=== PATIENT | female | born 1945 | race Caucasian/White ===

== ENCOUNTER → 2018-04-08 | Outpatient (CLI) | payer MEDICARE, OTHER ==
--- NOTE | 2018-04-08 13:06 | RAD ---
DATE: 04/08/2018 EXAM: MAMMO AYDEN SCREENING BILATERAL HISTORY: Routine screening COMPARISON: 03/27/2016 This study was interpreted with the benefit of Computerized Aided Detection (CAD). Breast Density: SCATTERED The breast parenchyma shows scattered fibroglandular densities. Breast parenchyma level B. FINDINGS: 2-D and 3-D tomosynthesis imaging was performed in CC and MLO projections. No new or enlarging breast densities are seen. Benign type calcifications are present. No suspicious microcalcifications have developed. IMPRESSION: Stable mammograms without evidence of malignancy. BI-RADS CATEGORY: 2 BENIGN FINDING(S) RECOMMENDED FOLLOW-UP: 12M 12 MONTH FOLLOW-UP PQRS compliance statement: Patient information was entered into a reminder system with a target due date for the next mammogram. Mammography is a sensitive method for finding small breast cancers, but it does not detect them all and is not a substitute for careful clinical examination. A negative mammogram does not negate a clinically suspicious finding and should not result in delay in biopsying a clinically suspicious abnormality. "Our facility is accredited by the [employer] Mammography [employer]."
== END | disposition home or self-care (01) ==
LOC: MAMMO 11:22
PROVIDERS: ATTEND Family Medicine
DX: Z12.31 Encounter for screening mammogram for malignant neoplasm of breast (principal)
CPT/HCPCS: 77063; 77067

== ENCOUNTER → 2019-07-14 | Outpatient (CLI) | payer MEDICARE, OTHER ==
--- NOTE | 2019-07-15 16:54 | RAD ---
DATE: 07/14/2019 EXAM: MAMMO AYDEN SCREENING BILATERAL HISTORY: Routine screening COMPARISON: 02/11/2014, 03/03/2015, 03/27/2016, 04/08/2018 This study was interpreted with the benefit of Computerized Aided Detection (CAD). Breast Density: SCATTERED The breast parenchyma shows scattered fibroglandular densities. Breast parenchyma level B. FINDINGS: No suspicious calcification, mass, or distortion. IMPRESSION: Stable BI-RADS CATEGORY: 1 NEGATIVE RECOMMENDED FOLLOW-UP: 12M 12 MONTH FOLLOW-UP PQRS compliance statement: Patient information was entered into a reminder system with a target due date for the next mammogram. Mammography is a sensitive method for finding small breast cancers, but it does not detect them all and is not a substitute for careful clinical examination. A negative mammogram does not negate a clinically suspicious finding and should not result in delay in biopsying a clinically suspicious abnormality. "Our facility is accredited by the [employer] Mammography [employer]."
== END | disposition home or self-care (01) ==
LOC: MAMMO 09:31
PROVIDERS: ATTEND Family Medicine
DX: Z12.31 Encounter for screening mammogram for malignant neoplasm of breast (principal)
CPT/HCPCS: 77063; 77067

== ENCOUNTER → 2020-08-02 | Outpatient (CLI) | payer MEDICARE, OTHER ==
--- NOTE | 2020-08-02 16:18 | RAD ---
EXAMINATION: MG BILAT SCREEN+AYDEN CLINICAL HISTORY: Routine screening TECHNIQUE: Digital craniocaudal and mediolateral oblique views of the bilateral breasts obtained with 3-D tomosynthesis. COMPARISON: 07/14/2019, 04/08/2018, 03/27/2016 BREAST COMPOSITION: There are scattered areas of fibroglandular density. FINDINGS: 2.5 cm developing asymmetry right breast middle third at 6:00 position approximately 7.7 cm from the nipple. No evidence of suspicious mass in the left breast. No evidence of suspicious calcifications o r areas of architectural distortion bilaterally. IMPRESSION: Developing asymmetry in the right breast at 6:00 position. BI-RADS ASSESSMENT: Category 0: Incomplete - Need Additional Imaging Evaluation and/or Prior Mammograms for Comparison RECOMMENDATION: Recommend further evaluation with spot compression views of the right breast and possible targeted ri ght breast ultrasound if indicated. PQRS compliance statement - Patient information was entered into a reminder system with a target due date for the next mammogram. "Our facility is accredited by the [employer] Mammography Program." Electronically signed by: Roby Dupree DO (08/02/2020 4:16 PM) [id number]
== END ==
LOC: MAMMO 11:09
PROVIDERS: ATTEND Family Medicine
DX: Z12.31 Encounter for screening mammogram for malignant neoplasm of breast (principal)
CPT/HCPCS: 77063; 77067

== ENCOUNTER → 2020-08-12 | Outpatient (CLI) | payer MEDICARE, OTHER ==
--- NOTE | 2020-08-12 10:46 | RAD ---
Examination: 1. Right digital diagnostic mammogram. 2. Limited right breast ultrasound. INDICATION: Right breast recall for new mass on screening mammogram. COMPARISON: mammograms of 07/14/19 and 08/02/20 TECHNIQUE: Full field right ML view along with spot compression CC and MLO views of the right breast were obtained with 2-D technique. Targeted ultrasound of the inferior right breast was subsequently p erformed. FINDINGS: The breast parenchyma is almost entirely fatty replaced. Additional mammographic views of the right breast confirm the presence of an isodense irregular mass at the 6:00 position at mid depth, approximately 5 cm from the nipple. Margins are indistinct and the re is punctate internal calcification. Targeted ultrasound of the right breast confirms the presence of an irregular hypoechoic mass at the 6:00 position 5 cm from the nipple measuring 2.2 cm in maximum length in the radial orientation on ul trasound. This corresponds with the mammographic finding recalled from screening. Sonographic survey of the right axilla reveals no adenopathy. IMPRESSION: Irregular 2.2 cm hypoechoic mass in the inferior right breast. BI-RADS Category 5 Findings highly suggestive of malignancy Recommend ultrasound-guided right breast core needle biopsy. Findings and recommendations communicated to the patient prior to her discharge from the imaging suit e and telephoned to the ordering provider (Dr. Mackenzie)'s office where temporary administrative assistant Lali chong took the telephone report on his behalf at 10:11 AM on August 12, 2020. Electronically signed by: Manjinder Lindsey MD (08/12/2020 10:44 AM) [id number]
== END ==
LOC: MAMMO 08:59
PROVIDERS: ATTEND Family Medicine
DX: R92.2 Inconclusive mammogram (principal); N63.13 Unspecified lump in the right breast, lower outer quadrant
CPT/HCPCS: 76641; 77065

== ENCOUNTER → 2020-08-30 | Outpatient (CLI) | payer MEDICARE, OTHER ==
--- NOTE | 2020-08-30 14:08 | RAD ---
INDICATION: Osteoporosis screening. Postmenopausal follow-up COMPARISON: 03/27/2016. TECHNIQUE: Bone densitometry was performed through the lumbar spine and proximal femur. IMPRESSION: Lumbar Spine: BMD: 1.33 T-Score: 1.2 Range: Normal. Similar to prior. Proximal Femur: BMD: 0.88 T-Score: -0.6 Range: Normal, decreased by 12 percent from prior World Health Organization Criteria for Bone Density: T-Score: > -1.0: Normal Range < -1.0 to -2.5: Osteopenic Range < -2.5: Osteoporotic Range Electronically signed by: Jose De Jesus Muñoz MD (08/30/2020 2:06 PM) [id number]
== END ==
LOC: DXRAD 12:38
PROVIDERS: ATTEND Family Medicine
DX: Z13.820 Encounter for screening for osteoporosis (principal); Z78.0 Asymptomatic menopausal state
CPT/HCPCS: 77080

== ENCOUNTER 2021-02-27 17:33 | Emergency (ER) | payer MEDICARE, OTHER ==
[~2021-02-27] VITALS: Ht 165.1 cm; Wt 91.0 kg
--- NOTE | 2021-02-27 18:10 | EKG ---
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
--- NOTE | 2021-02-27 18:31 | PHYS DOC ---
Past History Additional Past Medical Histor: breast cancer Past Surgical History: Hysterectomy, Knee Replacement Alcohol Use: None General Adult EDM: Chief Complaint: CHEST PAIN HPI: HPI: 75-year-old female presents with chest pain. The patient has been having intermittent tightness of the upper abdomen for the last couple of days. She presents today because the pain got up to a 10 out of 10. It is currently a 5 out of 10. She describes it as a squeezing all day around her upper abdomen just below her breasts. The patient is on chemotherapy currently for breast cancer. She has an echocardiogram scheduled for tomorrow. She had blood work done today as an outpatient that was normal. She wanted to wait till tomorrow, but she was afraid that this pain could be an indication of a heart attack. Her chest x-ray done as an outpatient showed cardiomegaly. She denies fever or chills. She has no other complaints at this time. Review of Systems: Review of Systems: Constitutional: Denies fever or chills Eyes: Denies change in visual acuity HENT: Denies nasal congestion or sore throat Respiratory: Denies cough or shortness of breath Cardiovascular: Chest pain GI: Epigastric abdominal pain. Denies nausea, vomiting, bloody stools or diarrhea : Denies dysuria Musculoskeletal: Denies back pain or joint pain Integument: Denies rash Neurologic: Denies headache, focal weakness or sensory changes Endocrine: Denies polyuria or polydipsia Lymphatic: Denies swollen glands Psychiatric: Denies depression or anxiety Physical Exam: PE: Constitutional: Well developed, well nourished, obese, no acute distress, non- toxic appearance. [] HENT: Normocephalic, atraumatic, bilateral external ears normal, oropharynx moist, no oral exudates, nose normal. [] Eyes: PERRLA, EOMI, conjunctiva normal, no discharge. [] Neck: Normal range of motion, no tenderness, supple, no stridor. [] Cardiovascular: Heart rate regular rhythm, no murmur [] Lungs & Thorax: Bilateral breath sounds clear to auscultation [] Abdomen: Bowel sounds normal, soft, no tenderness, no masses, no pulsatile masses. [] Skin: Warm, dry, no erythema, no rash. [] Back: No tenderness, no CVA tenderness. [] Extremities: No tenderness, no cyanosis, no clubbing, ROM intact, no edema. [] Neurologic: Alert and oriented X 3, normal motor function, normal sensory function, no focal deficits noted. [] Psychologic: Affect normal, judgement normal, mood normal. [] Current Patient Data: Vital Signs: Vital Signs Date Time Temp Pulse Resp B/P (MAP) Pulse Ox O2 Delivery O2 Flow Rate FiO2 02/27/21 18:00 98.0 95 18 139/89 97 Room Air EKG: EKG: [] Radiology/Procedures: Radiology/Procedures: [] Impressions: XR CHEST 1V Clinical History: Reason: CHEST PAIN / Spl. Instructions: / History: Technique: AP view of the chest was obtained at 02/27/2021 6:35 PM. Comparison: None. Findings: The cardiomediastinal silhouette is normal. The pulmonary vasculature is normal. The lungs and pleural margins are clear. There is right-sided Port-A-Cath. Impression: No evidence of an acute cardiopulmonary process. Electronically signed by: Jed Metcalf III, MD (02/27/2021 6:48 PM) [facility] DICTATED AND SIGNED BY: JED METCALF III, MD DATE: 02/27/211846 CC: AURE BRUCE MD; MAXI GARCIA DO ~MTH0 0 Heart Score: C/O Chest Pain: Yes HEART Score for Chest Pain: HEART Score for Chest Pain Response (Comments) Value History Slighlty/Non-Suspicious 0 ECG Normal 0 Age > 65 2 Risk Factors 1 or 2 Risk Factors 1 Troponin < Normal Limit 0 Total 3 Risk Factors: Risk Factors: DM, Current or recent (<one month) smoker, HTN, HLP, family history of CAD, obesity. Risk Scores: Score 0 - 3: 2.5% MACE over next 6 weeks - Discharge Home Score 4 - 6: 20.3% MACE over next 6 weeks - Admit for Clinical Observation Score 7 - 10: 72.7% MACE over next 6 weeks - Early Invasive Strategies Course & Med Decision Making: Course & Med Decision Making Pertinent Labs and Imaging studies reviewed. (See chart for details) The patient's EKG is unremarkable. Her labs are unremarkable. Her troponin is negative. Her chest x-ray is negative for acute findings. The patient's urinalysis is negative for infection. She is feeling better at this time. She is stable for discharge. [] Dragon Disclaimer: Dragon Disclaimer: This electronic medical record was generated, in whole or in part, using a voice recognition dictation system. Departure Departure: Impression: Primary Impression: Chest pain Disposition: HOME / SELF CARE / HOMELESS Condition: STABLE Referrals: AURE BRUCE MD (PCP) Patient Instructions: Chest Pain (Nonspecific), [id number] MAXI GARCIA DO Feb 27, 2021 18:31
--- NOTE | 2021-02-27 18:51 | RAD ---
XR CHEST 1V Clinical History: Reason: CHEST PAIN / Spl. Instructions: / History: Technique: AP view of the chest was obtained at 02/27/2021 6:35 PM. Comparison: None. Findings: The cardiomediastinal silhouette is normal. The pulmonary vasculature is normal. The lungs and pleura l margins are clear. There is right-sided Port-A-Cath. Impression: No evidence of an acute cardiopulmonary process. Electronically signed by: Joby Metcalf III, MD (02/27/2021 6:48 PM) [facility]
[2021-02-27 18:56] VITALS: BP 159/101
[2021-02-27 19:16] LABS: BASO # 0.1 x10^3/uL (0.0-0.2); BASO % 2 % (0-3); EOS % 1 % (0-3); HEMATOCRIT 33.8 % (36.0-47.0); HEMOGLOBIN 11.2 g/dL (12.0-15.5); LYMPH # 0.9 x10^3/uL (1.0-4.8); LYMPH % 37 % (24-48); MEAN CORPUSCULAR HEMOGLOBIN 29 pg (25-35); MEAN CORPUSCULAR HGB CONC 33 g/dL (31-37); MEAN CORPUSCULAR VOLUME 87 fL (79-100); MONO # 0.1 x10^3/uL (0.0-1.1); MONO % 5 % (0-9); NEUT # 1.3 x10^3uL (1.8-7.7); NEUT % 54 % (31-73); PLATELET COUNT 190 x10^3/uL (140-400); RED CELL DISTRIBUTION WIDTH 16.7 % (11.5-14.5); WHITE BLOOD COUNT 2.3 x10^3/uL (4.0-11.0)
[2021-02-27 19:32] LABS: CALCIUM 8.5 mg/dL (8.5-10.1); CREATININE 0.9 mg/dL (0.6-1.0); GFR 61.2; POTASSIUM 3.8 mmol/L (3.5-5.1)
[2021-02-27 19:38] LABS: ALBUMIN 3.7 g/dL (3.4-5.0); ALBUMIN/GLOBULIN RATIO 1.5 (1.0-1.7); TOTAL BILIRUBIN 0.5 mg/dL (0.2-1.0); TOTAL PROTEIN 6.1 g/dL (6.4-8.2)
[2021-02-27 21:25] LABS: BACTERIA,URINE FEW /HPF (0-FEW); BILIRUBIN,URINE NEG (NEG); CLARITY,URINE CLEAR; COLOR,URINE YELLOW; GLUCOSE,URINE NEG (NEG); NITRITE,URINE NEG (NEG); RBC,URINE OCC /HPF (0-2); SQUAMOUS EPITHELIAL CELL,UR FEW /LPF; UROBILINOGEN,URINE 0.2 mg/dL (0.2 mg/dL)
[2021-02-27] MEDS ORDERED: FAMOTIDINE 20 MG/2 ML VIAL IVP ONE (22:45)
[2021-02-27 22:55] LABS: % BANDS 6 % (0-9); % LYMPHS 36 % (24-48); % MONOS 4 % (0-10); % SEGS 54 % (35-66); PLT ESTIMATE ADEQUATE (ADEQUATE)
== END 2021-02-27 22:44 | disposition home or self-care (01) ==
LOC: ER 17:33
DX: R07.89 Other chest pain (principal); R10.13 Epigastric pain
CPT/HCPCS: 36415; 71045; 80053; 81001; 84484; 85007; 85025; 87086; 93005; 96374; 99285; J3490

== ENCOUNTER → 2021-06-06 | Outpatient (CLI) | payer MEDICARE, OTHER ==
--- NOTE | 2021-06-06 14:23 | RAD ---
Complete abdominal ultrasound 06/06/2021 8:45 AM Clinical History: Reason: EPIGASTRIC PAIN, HX OF BREAST Technique: Ultrasound examination of the abdomen was performed, and multiple static images were subm itted for review. Comparison: None Findings: The visualized pancreas is unremarkable. Visualized IVC and aorta are unremarkable. Portions of the l iver obscured, particularly superiorly. The liver appears to be normal in size measuring 14 cm longit udinally. Visualized main portal vein appears to demonstrate flow in the normal direction. No focal h epatic lesions are identified. The gallbladder demonstrates no evidence of wall thickening, stones, o r sludge. The right kidney is unremarkable in appearance measuring 10 cm in length. The common bile d uct is nondilated measuring between 4 and 5 mm. Spleen is normal in size measuring 8 cm longitudinall y. There is a simple appearing left renal cyst measuring 1.3 cm in diameter. Left kidney is otherwise unremarkable in appearance measuring 10.5 cm in length. IMPRESSION: 1. No sonographic evidence of acute intra-abdominal abnormality 2. 1.3 cm left renal cyst Electronically signed by: Pipo Mcelroy MD (06/06/2021 2:21 PM) [id number]
== END ==
LOC: US 08:37
PROVIDERS: ATTEND Internal Medicine Gastroenterology
DX: N28.1 Cyst of kidney, acquired (principal); Z85.3 Personal history of malignant neoplasm of breast
CPT/HCPCS: 76700

== ENCOUNTER → 2021-06-14 | Outpatient (CLI) | payer MEDICARE, OTHER ==
--- NOTE | 2021-06-14 15:10 | RAD ---
EXAMINATION: CT THORACIC SPINE WO, 06/14/2021 9:47 AM CLINICAL INDICATION: Thoracic back pain COMPARISON: None TECHNIQUE: Helical CT imaging performed of the thoracic spine without the use of intravenous contrast . Sagittal and coronal reformats were obtained. One or more of the following individualized dose reduction techniques were utilized for this examinat ion: 1. Automated exposure control 2. Adjustment of the mA and/or kV according to patient size 3. Use of iterative reconstruction technique. FINDINGS: There is no acute fracture. Alignment is normal. There are anterior osteophytes in the mid and lower thoracic spine. No significant disc space narrowing. There are tiny disc bulges at T5-T6 an d T6-T7. No evidence of canal or foraminal narrowing. There is a right sided central catheter with ti p terminating in the lower superior vena cava. Mild septal thickening in the lungs. Visualized portio n of the upper abdomen is unremarkable. IMPRESSION: No acute osseous abnormality or significant degenerative disc disease in the thoracic spi ne. Electronically signed by: Ivette Martinez MD (06/14/2021 3:08 PM) [id number]
== END ==
LOC: CT 09:42
PROVIDERS: ATTEND Family Medicine
DX: M51.24 Other intervertebral disc displacement, thoracic region (principal); M25.78 Osteophyte, vertebrae
CPT/HCPCS: 72128

== ENCOUNTER → 2021-06-20 | Outpatient (CLI) | payer MEDICARE, OTHER ==
--- NOTE | 2021-06-20 17:03 | RAD ---
EXAMINATION: CT Chest Without IV contrast. INDICATION:76 years, Female, interstitial pulmonary disease. COMPARISON: 06/14/2021. TECHNIQUE: Spiral CT was obtained from the jugular notch through the posterior costophrenic recesses. Expiratory and inspiratory axial acquisitions of the chest were also obtained. Sagittal and coronal reformats were generated. Exposure: One or more of the following individualized dose reduction techniques were utilized for thi s examination: 1. Automated exposure control 2. Adjustment of the mA and/or kV according to patient size 3. Use of iterative reconstruction technique. FINDINGS: Lungs/Pleura: No evidence of pulmonary fibrosis. Specifically, no honeycombing. No bronchiectasis. Mo derate to severe bilateral air-trapping. No suspicious pulmonary nodules. No pleural effusion or foca l pleural lesion. Scattered linear scarring/atelectatic changes in both lungs. MEDIASTINUM: No pathologic mediastinal or hilar adenopathy. Mild ascending thoracic aortic aneurysm m easures up to 4.1 cm maximum diameter. Pulmonary arteries are normal in caliber. The heart is normal in size. No pericardial effusion. Severe calcified coronary atherosclerosis. There is a 7 mm hypodens e nodule in the left thyroid lobe. Esophagus is unremarkable. Right Mediport catheter terminates in t he distal SVC. AXILLA/SOFT TISSUE: No supraclavicular or axillary adenopathy. Right mastectomy changes with surgical clips. UPPER ABDOMEN: The visualized upper abdomen appears unremarkable, within the limitation of the exam. BONES: No evidence of acute fractures or aggressive osseous lesions. IMPRESSION: 1. No evidence of pulmonary fibrosis. 2. Moderate to severe bilateral air-trapping, which may be seen with small airways disease. 3. Mild ascending thoracic aortic aneurysm measuring up to 4.1 cm. 4. Severe calcified coronary atherosclerosis. Electronically signed by: Vale Miner MD (06/20/2021 5:00 PM) [facility]
== END ==
LOC: CT 11:18
PROVIDERS: ATTEND Family Medicine
DX: I71.2 Thoracic aortic aneurysm, without rupture (principal); I25.10 Atherosclerotic heart disease of native coronary artery without angina pectoris; J84.9 Interstitial pulmonary disease, unspecified; E04.1 Nontoxic single thyroid nodule; Z90.11 Acquired absence of right breast and nipple
CPT/HCPCS: 71250

== ENCOUNTER 2021-06-21 09:03 | Emergency (ER) | payer MEDICARE, OTHER ==
[~2021-06-21] VITALS: Ht 165.1 cm; Wt 91.0 kg
--- NOTE | 2021-06-21 09:37 | PHYS DOC ---
Past History Additional Past Medical Histor: breast cancer, pneumonia, Past Surgical History: Cancer Surgery, Hysterectomy, Knee Replacement Additional Past Surgical Histo: R mastectomy, carpal tunnel Alcohol Use: None Adult General Chief Complaint Chief Complaint: CHEST PAIN HPI HPI Patient is a 76-year-old female presenting via POV for chest pain. Onset was approximately 4 hours prior to arrival shortly after waking up. Nothing known made better, physical activity and deep inspiration make worse. Patient reports pain is focal to right side of sternum and deep with some radiation to her right scapula. Timing of symptoms has been constant since onset. Reports pain is dull and pressure-like in nature which concerned her enough to seek care at local primary care office. On arrival to her office, patient was found to be hemodynamically stable but given ongoing chest pain and pressure, recommendations were made for patient to present to our ER for evaluation. On arrival, patient reports chest pain has not alleviated. She continues to take her daily aspirin and Eliquis for known left lower extremity DVT. She admits she has history of breast cancer that was treated and cared for at [facility] with no recurrence. States she has been at baseline health recently and had CT chest performed at our facility yesterday but does not know the results. Review of Systems Review of Systems Fourteen body systems of review of systems have been reviewed. See HPI for pertinent positives and negative responses, other kennedy all other systems are negative, non-pertinent or non-contributory Allergies Allergies Allergies Uncoded Allergies Type Severity Reaction Last Updated Verified TAPE Allergy Unknown 06/21/21 Physical Exam Physical Exam Constitutional: Well developed, well nourished, no acute distress, non-toxic appearance. HENT: Normocephalic, atraumatic, bilateral external ears normal, oropharynx moist, no oral exudates, nose normal. Eyes: PERRLA, EOMI, conjunctiva normal, no discharge. Neck: Normal range of motion, no tenderness, supple, no stridor. Cardiovascular: Heart rate regular, sinus rhythm, no murmurs rubs or gallops. Rt-sided chest port present Lungs & Thorax: Bilateral breath sounds clear to auscultation Abdomen: Bowel sounds normal, soft, no tenderness, no masses, no pulsatile masses. Nonsurgical abdomen, no peritoneal signs Skin: Warm, dry, no erythema, no rash. Well-appearing surgical site s/p right mastectomy Back: No tenderness, no CVA tenderness. Extremities: No tenderness, no cyanosis, no clubbing, ROM intact, no edema. Neurologic: Alert and oriented X 3, grossly normal motor & sensory function, no focal deficits noted. Psychologic: Anxious affect and mood Current Patient Data Vital Signs Vital Signs Date Time Temp Pulse Resp B/P (MAP) Pulse Ox O2 Delivery O2 Flow Rate FiO2 06/21/21 09:10 98.1 88 26 147/72 (97) 95 Room Air Lab Results Laboratory Tests Test 06/21/21 09:58 06/21/21 12:37 White Blood Count 7.0 x10^3/uL Red Blood Count 4.50 x10^6/uL Hemoglobin 12.0 g/dL Hematocrit 38.2 % Mean Corpuscular Volume 85 fL Mean Corpuscular Hemoglobin 27 pg Mean Corpuscular Hemoglobin Concent 32 g/dL Red Cell Distribution Width 14.8 % Platelet Count 186 x10^3/uL Neutrophils (%) (Auto) 77 % Lymphocytes (%) (Auto) 13 % Monocytes (%) (Auto) 8 % Eosinophils (%) (Auto) 2 % Basophils (%) (Auto) 1 % Neutrophils # (Auto) 5.4 x10^3uL Lymphocytes # (Auto) 0.9 x10^3/uL Monocytes # (Auto) 0.5 x10^3/uL Eosinophils # (Auto) 0.1 x10^3/uL Basophils # (Auto) 0.1 x10^3/uL Prothrombin Time 11.2 SEC Prothromb Time International Ratio 1.1 Activated Partial Thromboplast Time 25 SEC Sodium Level 145 mmol/L Potassium Level 3.3 mmol/L Chloride Level 106 mmol/L Carbon Dioxide Level 28 mmol/L Anion Gap 11 Blood Urea Nitrogen 13 mg/dL Creatinine 0.9 mg/dL Estimated GFR (Cockcroft-Gault) 61.0 BUN/Creatinine Ratio 14 Glucose Level 124 mg/dL Calcium Level 8.9 mg/dL Total Bilirubin 0.3 mg/dL Aspartate Amino Transf (AST/SGOT) 21 U/L Alanine Aminotransferase (ALT/SGPT) 20 U/L Alkaline Phosphatase 54 U/L Troponin I High Sensitivity 12 ng/L 13 ng/L Total Protein 6.1 g/dL Albumin 3.3 g/dL Albumin/Globulin Ratio 1.2 Lipase 56 U/L Current Medications Medications (Trade) Dose Ordered Sig/Edgar Route PRN Reason Start Time Stop Time Status Last Admin Dose Admin Iohexol (Omnipaque 350 Mg/ml) 100 ml 1X ONCE IV 06/21/21 10:00 06/21/21 10:01 DC 06/21/21 11:09 Fentanyl Citrate (Fentanyl 2ml Vial) 25 mcg 1X ONCE IVP 06/21/21 11:30 06/21/21 11:32 DC 06/21/21 11:48 EKG EKG EKG ordered and interpreted by myself at 0920 hrs. as sinus rhythm at 82 bpm, unremarkable intervals, left axis deviation, no ischemic findings, no STEMI Radiology/Procedures Radiology/Procedures CTA CHEST History: Right-sided chest pain. Technique: CT of the chest was performed with intravenous contrast. PE protocol. Maximum intensity projection coronal and sagittal reconstructions were performed. Exposure: One or more of the following individualized dose reduction techniques were utilized for this examination: 1. Automated exposure control 2. Adjustment of the mA and/or kV according to patient size 3. Use of iterative reconstruction technique. Comparison: June 20, 2021 Findings: Chest: No pulmonary embolism. Ectatic ascending aorta measures 3.9 cm. No aortic dissection. Mild atheromatous plaque. Postoperative changes right mastectomy. Right chest wall port. Mild scattered linear atelectasis. Mild mosaic attenuation related to air trapping. No pathologic lymphadenopathy. Coronary artery calcifications. 2 mm right middle lobe pulmonary nodule (series 5 image 76), unchanged. 2 minor right middle lobe pulmonary nodule (image 56). Upper abdomen: The imaged upper abdomen is unremarkable. Bones: No pathologic osseous lesions. Impression: 1. No pulmonary embolism. 2. Scattered linear atelectasis bilaterally with air trapping. 3. Small pulmonary nodules. Recommend one-year follow-up chest CT without contrast. 4. Coronary artery calcifications. Electronically signed by: Jose South DO (06/21/2021 11:46 AM) [id number] Heart Score C/O Chest Pain: Yes HEART Score for Chest Pain: HEART Score for Chest Pain Response (Comments) Value History Highly Suspicious 2 ECG Nonspecific Repolarizatio 1 Age > 65 2 Risk Factors >3 Risk Factors or Hx CAD 2 Troponin < Normal Limit 0 Total 7 Risk Factors: Risk Factors: DM, Current or recent (<one month) smoker, HTN, HLP, family history of CAD, obesity. Risk Scores: Risk Factors: DM, Current or recent (<one month) smoker, HTN, HLP, family history of CAD, obesity. Course & Med Decision Making Course & Med Decision Making ABCs grossly non-concerning HPI, PE and ER workup non-concerning for any obvious emergent or surgical issues Nonetheless, HEART score reviewed in high risk patient, joint decision made to discuss with [facility] who provides patient's specialist care given history of breast CA. They recommended hospital transfer for admission I updated patient and on this discussion and recommendation and they were amenable. All questions and concerns addressed prior to transfer via EMS Dragon Disclaimer Dragon Disclaimer This electronic medical record was generated, in whole or in part, using a voice recognition dictation system. Departure Departure: Impression: Primary Impression: Chest pain Additional Impression: History of breast cancer in female Disposition: 02 [facility] ([facility]) Admitting Physician: Other ( ) Condition: STABLE Referrals: AURE BRUCE MD (PCP) Problem Qualifiers RICH MEJIAS DO Jun 21, 2021 09:37
[2021-06-21] MEDS ORDERED: IOHEXOL 350 MG/ML 100 ML VIAL. IV ONE (10:00)
[2021-06-21 10:47] LABS: BASO # 0.1 x10^3/uL (0.0-0.2); BASO % 1 % (0-3); EOS # 0.1 x10^3/uL (0.0-0.7); EOS % 2 % (0-3); HEMATOCRIT 38.2 % (36.0-47.0); LYMPH # 0.9 x10^3/uL (1.0-4.8); LYMPH % 13 % (24-48); MEAN CORPUSCULAR HEMOGLOBIN 27 pg (25-35); MEAN CORPUSCULAR HGB CONC 32 g/dL (31-37); MEAN CORPUSCULAR VOLUME 85 fL (79-100); MONO # 0.5 x10^3/uL (0.0-1.1); MONO % 8 % (0-9); NEUT # 5.4 x10^3uL (1.8-7.7); NEUT % 77 % (31-73); PLATELET COUNT 186 x10^3/uL (140-400); RED CELL DISTRIBUTION WIDTH 14.8 % (11.5-14.5)
[2021-06-21 10:48] LABS: CALCIUM 8.9 mg/dL (8.5-10.1); CREATININE 0.9 mg/dL (0.6-1.0); POTASSIUM 3.3 mmol/L (3.5-5.1)
[2021-06-21 10:54] LABS: ALBUMIN 3.3 g/dL (3.4-5.0); ALBUMIN/GLOBULIN RATIO 1.2 (1.0-1.7); TOTAL BILIRUBIN 0.3 mg/dL (0.2-1.0); TOTAL PROTEIN 6.1 g/dL (6.4-8.2)
--- NOTE | 2021-06-21 11:48 | RAD ---
CTA CHEST History: Right-sided chest pain. Technique: CT of the chest was performed with intravenous contrast. PE protocol. Maximum intensity pr ojection coronal and sagittal reconstructions were performed. Exposure: One or more of the following individualized dose reduction techniques were utilized for thi s examination: 1. Automated exposure control 2. Adjustment of the mA and/or kV according to patient size 3. Use of iterative reconstruction technique. Comparison: June 20, 2021 Findings: Chest: No pulmonary embolism. Ectatic ascending aorta measures 3.9 cm. No aortic dissection. Mild ath eromatous plaque. Postoperative changes right mastectomy. Right chest wall port. Mild scattered linea r atelectasis. Mild mosaic attenuation related to air trapping. No pathologic lymphadenopathy. White ry artery calcifications. 2 mm right middle lobe pulmonary nodule (series 5 image 76), unchanged. 2 minor right middle lobe pul monary nodule (image 56). Upper abdomen: The imaged upper abdomen is unremarkable. Bones: No pathologic osseous lesions. Impression: 1. No pulmonary embolism. 2. Scattered linear atelectasis bilaterally with air trapping. 3. Small pulmonary nodules. Recommend one-year follow-up chest CT without contrast. 4. Coronary artery calcifications. Electronically signed by: Jose South DO (06/21/2021 11:46 AM) [id number]
--- NOTE | 2021-06-21 11:56 | EKG ---
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
[2021-06-21] MEDS ORDERED: MORPHINE SULFATE 4 MG/ML DISP.SYRIN. IV ONE (20:00)
[2021-06-21] MEDS ORDERED: ONDANSETRON PF 4 MG/2 ML VIAL. IVP ONE (20:00)
[2021-06-21 22:31] VITALS: BP 147/80
== END 2021-06-21 22:39 | disposition short-term general hospital (02) ==
LOC: ER 09:03
DX: R07.2 Precordial pain (principal); Z20.822 Contact with and (suspected) exposure to COVID-19; Z88.8 Allergy status to other drugs, medicaments and biological substances
CPT/HCPCS: 36415; 71275; 80053; 83690; 84484; 85025; 85610; 85730; 87426; 93005; 96374; 96375; 96376; 99285; C9803; J2270; J2405; J3010; Q9967; U0003

== ENCOUNTER → 2021-09-18 | Outpatient (CLI) | payer MEDICARE, OTHER ==
--- NOTE | 2021-09-18 13:31 | RAD ---
EXAM: HEPATOBILIARY SCINTIGRAPHY WITH GALLBLADDER EJECTION FRACTION CALCULATION. HISTORY: Abdominal pain/nausea. TECHNIQUE: 5.3 mCi technetium-99m Choletec were administered intravenously and scintigraphic images o f the abdomen obtained. After filling of the gallbladder, 8 ounces of Boost were administered orally and the gallbladder ejection fraction calculated. FINDINGS: There is prompt hepatic clearance of tracer from the blood pool. There is homogeneous distr ibution throughout the liver. There is normal filling of the gallbladder and clearance into the bilia ry tree and small bowel. The gallbladder ejection fraction is 61% (normal >35%). IMPRESSION: 1. Normal gallbladder ejection fraction. Electronically signed by: Dago Anaya MD (09/18/2021 1:28 PM) [id number]
== END ==
LOC: NM 07:41
PROVIDERS: ATTEND Family Medicine
DX: R10.11 Right upper quadrant pain (principal)
CPT/HCPCS: 78227; A9537